=== PATIENT | female | born 1970 | race African-American/Black ===

== ENCOUNTER 2017-03-16 11:46 | Inpatient (IN) | payer MEDICAID ==
[~2017-03-16] VITALS: Ht 154.9 cm; Wt 48.0 kg
[~2017-03-16 11:46] MED LIST: NOCURR
[2017-03-16 12:20] LABS: BASOPHILS % (AUTO) 0.3 % (0.0-2.0); EOSINOPHILS % (AUTO) 1.2 % (1.0-6.0); HEMATOCRIT 36.8 % (36-46); HEMOGLOBIN 11.9 g/dL (12.0-16.0); LYMPHOCYTES # (AUTO) 0.7 K/uL (1.0-4.8); LYMPHOCYTES % (AUTO) 20.2 % (22.0-44.0); MEAN CORPUSCULAR HEMOGLOBIN 31.1 pg (26.0-34.0); MEAN CORPUSCULAR HGB CONC 32.4 G/dL (31.0-37.0); MEAN CORPUSCULAR VOLUME 96 fL (80-100); MONOCYTES # (AUTO) 0.5 K/uL (0.1-1.0); MONOCYTES % (AUTO) 13.2 % (2.0-9.0); NEUTROPHILS # (AUTO) 2.3 K/uL (1.8-7.7); NEUTROPHILS % (AUTO) 65.1 % (40.0-70.0); PLATELET COUNT (AUTO) 248 K/uL (150-450); RED BLOOD CELL COUNT(AUTO) 3.83 MIL/uL (4.00-5.20); RED CELL DISTRIBUTION WIDTH 16.3 % (11.5-14.5); WHITE BLOOD COUNT (AUTO) 3.5 K/uL (4.5-11.0)
[2017-03-16 12:32] LABS: ANION GAP 15 mmol/L (8-16); CALCIUM, TOTAL 8.3 mg/dL (8.8-10.5); CARBON DIOXIDE 27 mmol/L (22-29); CHLORIDE 99 mmol/L (98-107); GLOMERULAR FILTR. RATE CALC > 60 mL/min (>60); POTASSIUM 3.3 mmol/L (3.5-5.1); SODIUM SERUM 141 mmol/L (136-145); UREA NITROGEN, BLOOD 9 mg/dL (7-18)
[2017-03-16 12:39] LABS: ALANINE AMINOTRANSFERASE 54 U/L (12-78); ALBUMIN 3.8 g/dL (3.4-5.0); ASPARTATE AMINOTRANSFERASE 91 U/L (15-37); BILIRUBIN,TOTAL 0.7 mg/dL (0.1-1.0); TOTAL PROTEIN, SERUM 7.6 g/dL (6.4-8.2)
[2017-03-16] MEDS ORDERED: ZOLPIDEM TARTRATE 10 MG TABLET PO PRN (15:15)
[2017-03-16] MEDS: LORazepam 2 MG TABLET PO PRN (16:08)
[2017-03-16 21:09] VITALS: BP 156/80
[2017-03-16] MEDS ORDERED: POTASSIUM CHLORIDE 20 MEQ ER TABLET PO ONE (21:30)
[2017-03-16] MEDS ORDERED: ACETAMINOPHEN 325 MG TABLET PO PRN (21:30)
[2017-03-16] MEDS ORDERED: IBUPROFEN 400 MG TABLET PO PRN (21:30)
[2017-03-17] VITALS (9 sets, daily range): BP systolic 126–163; BP diastolic 78–98
[2017-03-17] MEDS: LORazepam 2 MG TABLET PO PRN (06:34)
[2017-03-17 06:59] LABS: BASOPHILS # (AUTO) 0.01 K/uL (0.00-0.20); BASOPHILS % (AUTO) 0.3 % (0.0-2.0); EOSINOPHILS # (AUTO) 0.05 K/uL (0.00-0.70); EOSINOPHILS % (AUTO) 1.36 % (1.0-6.0); HEMATOCRIT 34.1 % (36-46); HEMOGLOBIN 11.2 g/dL (12.0-16.0); LYMPHOCYTES # (AUTO) 0.5 K/uL (1.0-4.8); LYMPHOCYTES % (AUTO) 14.7 % (22.0-44.0); MEAN CORPUSCULAR HEMOGLOBIN 31.9 pg (26.0-34.0); MEAN CORPUSCULAR HGB CONC 32.8 G/dL (31.0-37.0); MEAN CORPUSCULAR VOLUME 97 fL (80-100); MONOCYTES # (AUTO) 0.7 K/uL (0.1-1.0); MONOCYTES % (AUTO) 18.1 % (2.0-9.0); NEUTROPHILS # (AUTO) 2.3 K/uL (1.8-7.7); NEUTROPHILS % (AUTO) 65.4 % (40.0-70.0); PLATELET COUNT (AUTO) 210 K/uL (150-450); RED CELL DISTRIBUTION WIDTH 15.8 % (11.5-14.5); WHITE BLOOD COUNT (AUTO) 3.6 K/uL (4.5-11.0)
[2017-03-17 07:14] LABS: RBC MORPHOLOGY COMMENT NORMAL RBC MORPH
[2017-03-17 07:32] LABS: ALANINE AMINOTRANSFERASE 59 U/L (12-78); ALBUMIN 3.3 g/dL (3.4-5.0); ANION GAP 9 mmol/L (8-16); ASPARTATE AMINOTRANSFERASE 124 U/L (15-37); CALCIUM, TOTAL 8.4 mg/dL (8.8-10.5); CARBON DIOXIDE 27 mmol/L (22-29); CHLORIDE 101 mmol/L (98-107); CHOL/HDL RATIO 1.5 (3.9-5.7); CREATININE 0.68 mg/dL (0.60-1.30); GLOMERULAR FILTR. RATE CALC > 60 mL/min (>60); POTASSIUM 4.2 mmol/L (3.5-5.1); SODIUM SERUM 137 mmol/L (136-145); TOTAL PROTEIN, SERUM 6.8 g/dL (6.4-8.2); UREA NITROGEN, BLOOD 9 mg/dL (7-18)
[2017-03-17 08:02] LABS: HEMOGLOBIN A1C 5.6 % (4.5-6.2)
[2017-03-17] MEDS ORDERED: CYANOCOBALAMIN 1,000 MCG/ML VIAL IM ONE (12:00)
[2017-03-17] MEDS: FOLIC ACID 1 MG TABLET PO SCH (13:13)
[2017-03-17] MEDS: ARIPiprazole 10 MG TABLET PO SCH (13:13)
[2017-03-17] MEDS: MULTIVITAMINS WITH MINERALS, THERAPEUTIC TABLET PO SCH (13:13)
[2017-03-17] MEDS: FLUoxetine HCL 10 MG CAPSULE PO SCH (13:14)
[2017-03-17] MEDS ORDERED: IBUPROFEN 400 MG TABLET PO PRN (18:15)
[2017-03-17] MEDS ORDERED: ACETAMINOPHEN 325 MG TABLET PO PRN (18:15)
[2017-03-17] MEDS: LORazepam 2 MG TABLET PO SCH (21:20)
[2017-03-18] VITALS (7 sets, daily range): BP systolic 138–160; BP diastolic 84–100
[2017-03-18] MEDS: LORazepam 2 MG TABLET PO PRN (02:42)
[2017-03-18] MEDS ORDERED: LORazepam 2 MG TABLET PO PRN (07:00)
[2017-03-18] MEDS ORDERED: LORazepam 2 MG TABLET PO SCH (09:00)
[2017-03-18] MEDS: MULTIVITAMINS WITH MINERALS, THERAPEUTIC TABLET PO SCH (10:33)
[2017-03-18] MEDS: FOLIC ACID 1 MG TABLET PO SCH (10:33)
[2017-03-18] MEDS: ARIPiprazole 10 MG TABLET PO SCH (10:33)
[2017-03-18] MEDS: FLUoxetine HCL 10 MG CAPSULE PO SCH (10:33)
[2017-03-18] MEDS: LORazepam 2 MG TABLET PO SCH ×4 (10:34→21:48)
[2017-03-19] MEDS: LORazepam 2 MG TABLET PO PRN ×2 (02:42→16:48)
[2017-03-19 06:36] VITALS: BP 140/85
[2017-03-19] MEDS ORDERED: LORazepam 1 MG TABLET PO PRN (07:00)
[2017-03-19 08:00] VITALS: BP 137/95
[2017-03-19] MEDS: LORazepam 1 MG TABLET PO SCH ×5 (09:00→21:09)
[2017-03-19] MEDS: ARIPiprazole 10 MG TABLET PO SCH (09:11)
[2017-03-19] MEDS: MULTIVITAMINS WITH MINERALS, THERAPEUTIC TABLET PO SCH (09:12)
[2017-03-19] MEDS: FOLIC ACID 1 MG TABLET PO SCH (09:12)
[2017-03-19] MEDS: FLUoxetine HCL 10 MG CAPSULE PO SCH (09:12)
[2017-03-19] MEDS: HALOPERIDOL 5 MG TABLET PO PRN (16:48)
[2017-03-19 22:57] VITALS: BP 121/90
[2017-03-20 06:36] VITALS: BP 109/70
[2017-03-20] MEDS ORDERED: LORazepam 1 MG TABLET PO PRN (07:00)
[2017-03-20 08:00] VITALS: BP 123/91
[2017-03-20] MEDS ORDERED: LORazepam 1 MG TABLET PO SCH (09:00)
[2017-03-20] MEDS: LORazepam 1 MG TABLET PO PRN ×3 (09:26→20:16)
[2017-03-20] MEDS: ARIPiprazole 10 MG TABLET PO SCH (09:26)
[2017-03-20] MEDS: FOLIC ACID 1 MG TABLET PO SCH (09:27)
[2017-03-20] MEDS: MULTIVITAMINS WITH MINERALS, THERAPEUTIC TABLET PO SCH (09:29)
[2017-03-20] MEDS: FLUoxetine HCL 20 MG CAPSULE PO SCH (09:29)
[2017-03-20 17:04] VITALS: BP 118/80
[2017-03-21 06:27] VITALS: BP 120/79
[2017-03-21] MEDS ORDERED: LORazepam 1 MG TABLET PO PRN (07:00)
[2017-03-21 08:00] VITALS: BP 119/84
[2017-03-21] MEDS: FOLIC ACID 1 MG TABLET PO SCH (09:11)
[2017-03-21] MEDS: FLUoxetine HCL 20 MG CAPSULE PO SCH (09:11)
[2017-03-21] MEDS: ARIPiprazole 10 MG TABLET PO SCH (09:11)
[2017-03-21] MEDS: MULTIVITAMINS WITH MINERALS, THERAPEUTIC TABLET PO SCH (09:11)
[2017-03-21 11:30] VITALS: BP 119/84
[2017-03-21 12:30] VITALS: BP 115/80
[2017-03-21] MEDS: HALOPERIDOL 5 MG TABLET PO PRN ×2 (14:01→18:10)
[2017-03-21 16:41] VITALS: BP 112/87
[2017-03-22] MEDS: HALOPERIDOL 5 MG TABLET PO PRN (07:59)
[2017-03-22 08:05] VITALS: BP 118/66
[2017-03-22] MEDS: ARIPiprazole 10 MG TABLET PO SCH (08:13)
[2017-03-22] MEDS: FOLIC ACID 1 MG TABLET PO SCH (08:14)
[2017-03-22] MEDS: FLUoxetine HCL 20 MG CAPSULE PO SCH (08:14)
[2017-03-22] MEDS: MULTIVITAMINS WITH MINERALS, THERAPEUTIC TABLET PO SCH (08:14)
[2017-03-22] MEDS ORDERED: ARIP10TA14 PO (09:11)
[2017-03-22] MEDS ORDERED: FLUO-191 PO (09:11)
[2017-03-22] MEDS ORDERED: MV-M1TAB2 PO (09:13)
[2017-03-22] MEDS ORDERED: FOLI1 PO (09:13)
== END 2017-03-22 11:00 | disposition home or self-care (01) | DRG 753 ==
LOC: EMS 11:46 → EEVIPCON 11:46 → 3EI 20:00
PROVIDERS: ADMIT Psychiatry & Neurology Child & Adolescent Psychiatry; ATTEND Psychiatry & Neurology Child & Adolescent Psychiatry
PROC: HZ47ZZZ Group Counseling for Substance Abuse Treatment, Motivational Enhancement (ICD-10-PCS; principal; 2017-03-17)
PROC: HZ2ZZZZ Detoxification Services for Substance Abuse Treatment (ICD-10-PCS; 2017-03-17)
DX: F31.4 Bipolar disorder, current episode depressed, severe, without psychotic features (principal); R45.851 Suicidal ideations; F15.20 Other stimulant dependence, uncomplicated; I10 Essential (primary) hypertension; Y90.8 Blood alcohol level of 240 mg/100 ml or more; G47.00 Insomnia, unspecified; F41.9 Anxiety disorder, unspecified; F10.10 Alcohol abuse, uncomplicated; F12.90 Cannabis use, unspecified, uncomplicated; R00.0 Tachycardia, unspecified; E78.5 Hyperlipidemia, unspecified; Z91.5 Personal history of self-harm; Z71.41 Alcohol abuse counseling and surveillance of alcoholic; Z71.51 Drug abuse counseling and surveillance of drug abuser
CPT/HCPCS: 83036; 84439; 84443; 86592; 99285; G0480; J3420